=== PATIENT | male | born 1990 | race Caucasian/White ===

== ENCOUNTER 2019-08-16 06:39 | Day surgery (SDC) | payer OTHER ==
[2019-08-16] MEDS ORDERED: PROPOFOL 200 MG/20 ML VIAL IVP ONE (06:40)
[2019-08-16] MEDS ORDERED: MIDAZOLAM 2 MG/2 ML VIAL IVP ONE (06:40)
[2019-08-16] MEDS ORDERED: ROCURONIUM 50 MG/5 ML VIAL IVP ONE (06:40)
[2019-08-16] MEDS ORDERED: fentaNYL 100 MCG/2 ML VIAL IVP ONE (06:40)
--- NOTE | 2019-08-16 06:56 | ANESTHESIA ---
Pre-Anesthesia VS, & Labs - Diagnosis left shoulder labral tear, bicep tendonitis - Procedure left shoulder arthroscopy with slap repair Height 5 ft 8 in Weight (kg) 74.84 kg - NPO >8 hours Home Medications and Allergies Home Medications: Ambulatory Orders No Known Home Medications 08/11/19 No Known Home Medications 08/11/19 Allergies/Adverse Reactions: Allergies Allergy/AdvReac Type Severity Reaction Status Date / Time No Known Drug Allergies Allergy Verified 08/11/19 14:41 Anes History & Medical History - Anesthetic History Anesthesia Complications: reports: No previous complications Family history of Anesthesia Complications: Denies Family history of Malignant Hyperthermia: Denies - Medical History Cardiovascular: reports: None Pulmonary: reports: None, Other (smoker ppdx 11 yrs) Gastrointestinal: reports: None Urinary: reports: None Neuro: reports: None Musculoskeletal: reports: None, Other (chronic back pain) Endocrine/Autoimmune: reports: None Blood Disorders: reports: None Skin: reports: None Smoking Status: Current every day smoker (ppd x 11 yrs) Psychosocial: reports: No issues indicated - Surgical History General: Other Exam General: Alert, Oriented x3, Cooperative, No acute distress Dental: WNL Mouth Openin Fingerbreadth Neck Mobility: Normal Mallampati classification: II Thyromental Distance: 4-6 cm Respiratory: Lungs clear, Normal breath sounds, No respiratory distress, No accessory muscle use Cardiovascular: Regular rate, Normal S1, Normal S2, No murmurs Abdomen: Normal bowel sounds, Soft, No tenderness, No hepatospenomegaly, No masses Extremities: No clubbing, No cyanosis, No edema, Normal pulses, No tenderness/swelling Neurological: Normal gait, Normal speech, Strength at 5/5 X4 ext, Normal tone, Sensation intact, Cranial nerves 3-12 NL, Reflexes 2+ Mental/Cognitive Status: Alert/Oriented X3, Normal for patient Cognitive Status: Within normal limits Plan Anesthesia Type: General, Interscalene Block Regional Block: Per Surgeon's request for Post Op pain control Consent for Procedure(s) Verified and Reviewed: Yes Code Status: Attempt Resuscitation ASA classification: 2-Mild systemic disease Is this case an emergency?: No
[2019-08-16] MEDS ORDERED: EPINEPHrine 1 MG/ML AMP ONE (07:01)
[2019-08-16] MEDS ORDERED: cefTRIAXone 2 GM VIAL ONE (07:05)
[2019-08-16] MEDS ORDERED: LACTATED RINGERS 1,000 ML IV ONE (07:08)
[2019-08-16] MEDS ORDERED: BUPIVACAINE 0.25% PF 30 ML VIAL ONE (07:14)
[2019-08-16] MEDS ORDERED: BUPIVACAINE 0.25% PF 30 ML VIAL SUBQ ONE ×2 (07:21)
[2019-08-16] MEDS ORDERED: EPINEPHrine 1 MG/ML AMP IR ONE (09:06)
[2019-08-16] MEDS ORDERED: oxyCODONE 5 MG TABLET PO PRN (09:39)
[2019-08-16] MEDS ORDERED: ONDANSETRON 4 MG/2 ML VIAL IVP PRN (09:39)
--- NOTE | 2019-08-16 09:52 | OPERATIVE REPORT ---
Operative Report - Other Other Information/Narrative: Date of Surgery: 16 Aug 2019 Pre-Op Diagnosis: Left shoulder instability Procedure: Left shoulder arthroscopic Bankart repair with capsulorrhaphy. Loose body removal Postop Diagnosis: Left shoulder instability. Left shoulder loose body Primary Surgeon: David Tay Secondary Surgeon: Pascual Streeter Complications: None EBL: 20 cc IMPLANTS: Arthrex knotless suture tack x4 POSTOPERATIVE PLAN: 0-2 weeks-Sling at all times. Pendulum exercises 5 times per day. 2-6 weeks-Passive range of motion with the following limits: FF to 120, ER to 30, abduction to 90 6-12 weeks-Active range of motion in all planes without limitation. Isometric rotator cuff strengthening is allowed 12-16 weeks-Gradually increase strengthening 16 weeks and beyond-Introduce dynamic activities EXAMINATION UNDER ANESTHESIA: ROM: Full Anterior load and shift: Grade 2 Posterior load and shift: Normal Inferior sulcus: Grade 1 ARTHROSCOPIC FINDINGS: Rotator interval: Normal Biceps tendon & SLAP: Normal Subscapularis: Normal Rotator Cuff: Normal HAGL: Normal Labrum: Bankart tear with 15% bone loss. Labrum was healed down the glenoid neck. A large loose body was seen adjacent to the anterior inferior labrum. Loose body was excised. Labrum was prepped to the subscap muscle. For anchor repair was performed from 5:30 to 2:30 Glenoid Cartilage: 15% anterior bone loss. No posterior lesions Humeral Head Cartilage: Hill-Sachs lesion was seen posteriorly. The loose body was likely from this location INDICATION FOR SURGERY: 28-year-old male with multiple anterior shoulder dislocations the first 1 being 11 years ago. He did not trust the shoulder and had frequent instability episodes to the point where he cannot do his job. Nonoperative managment failed to resolve symptoms. The risks, benefits, and alternatives were discussed. Risks included pain, bleeding, infection, damage to nearby structures, lack of symptom relief, implant complications, stiffness, need for further surgeries, DVT, PE, stroke, and even . He signed a written consent form. PROCEDURE IN DETAIL: The patient was met in the preoperative holding on the day of the procedure. Operative extremity was signed. Consent was verified. He desired to proceed. Regional anesthesia was obtained in the preoperative area. They were brought to the operating room and surrendered to anesthesia. Once general anesthesia was obtained they were placed in the lateral decubitus position with the operative side up. An axillary roll was placed and all bony prominences were well-padded. They were then prepped and draped in the standard sterile fashion. A surgical timeout was held to confirm the patient procedure, identity, procedure, laterality, allergies, images, and antibiotics. All were in agreement we proceeded. Balanced suspension was applied and a standard diagnostic arthroscopy was performed utilizing posterior and anterior superior portal sites. The anterior superior portal site was created under direct visualization. The findings of the diagnostic arthroscopy can be found above. A mid glenoid portal was then created under direct visualization bordering the subscapularis tendon. I then used a combination of high and low angled elevators to develop the labral tear and release it from off the glenoid neck. I then used to the pineapple rasp to finalize my release and abraded the glenoid bone to a bleeding bed. A sucker shaver was placed in the interval to debride any loose tissue and further abrade the glenoid neck. Any loose cartilage was debrided at that time. Subscapularis muscle belly was seen within the interval The tear stopped at 530 and it was prepped at that location. The first anchor was placed from the anterior inferior portal at 530, just on the face of the glenoid. The suture was passed using an appropriate 45 degree suture lasso. An excellent capsular shift was obtained and held firmly with the implant. The labrum was secured using knotless technique. Appropriate tension was confirmed with a probe and the excess suture was cut. Using the same technique additional anchors were placed at 430, 330, and 230. Proper capsular tension was restored and a labral bumper was recreated. Balanced suspension was then released and final images were taken showing the humeral head centered in the glenoid. The portal sites were then closed with 3-0 Monocryl buried. Mastisol and Steri- Strips were applied. A sterile dressing and a sling was applied. He was awakened and transferred to the recovery room.
[2019-08-16] MEDS ORDERED: KETOROLAC 30 MG/ML VIAL ONE (09:53)
[2019-08-16 10:39] VITALS: BP 112/75
== END 2019-08-16 06:40 | disposition home or self-care (01) ==
LOC: SDS 06:39
PROVIDERS: ATTEND Orthopaedic Surgery
DX: S43.492A Other sprain of left shoulder joint, initial encounter (principal); M24.012 Loose body in left shoulder; M25.312 Other instability, left shoulder; F17.210 Nicotine dependence, cigarettes, uncomplicated
CPT/HCPCS: 29806; C1713; J7120